=== PATIENT | female | born 1965 | race Caucasian/White ===

== ENCOUNTER 2022-11-30 09:10 | Outpatient (CLI) | payer BC, SELFPAY | END 2022-11-30 09:11 | disposition home or self-care (01) | PROVIDERS: PCP Family Medicine; Visit Provider Family Medicine | DX: Z00.00 Encounter for general adult medical examination without abnormal findings (principal); E03.9 Hypothyroidism, unspecified; I10 Essential (primary) hypertension; F41.8 Other specified anxiety disorders | CPT/HCPCS: 80053; 82607; 84443 ==

== ENCOUNTER 2023-03-23 16:52 | Outpatient (CLI) | payer BC, SELFPAY | END 2023-03-23 16:53 | disposition home or self-care (01) | LOC: NFLDREF 03-26 11:27 | PROVIDERS: PCP Family Medicine; Referring Provider Family Medicine; Visit Provider Family Medicine | DX: E03.9 Hypothyroidism, unspecified (principal); E87.6 Hypokalemia; I10 Essential (primary) hypertension | CPT/HCPCS: 80053; 84439; 84443 ==

== ENCOUNTER 2023-08-17 14:19 | Outpatient (CLI) | payer BC, SELFPAY | END 2023-08-17 14:20 | disposition home or self-care (01) | PROVIDERS: PCP Family Medicine; Visit Provider Family Medicine | DX: E03.9 Hypothyroidism, unspecified (principal); I10 Essential (primary) hypertension; Z98.84 Bariatric surgery status; Z13.21 Encounter for screening for nutritional disorder | CPT/HCPCS: 80053; 82607; 84443 ==

== ENCOUNTER 2024-08-18 11:45 | Outpatient (CLI) | payer BC, SELFPAY | END 2024-08-18 11:46 | disposition home or self-care (01) | PROVIDERS: PCP Family Medicine; Visit Provider Family Medicine | DX: E03.9 Hypothyroidism, unspecified (principal); I10 Essential (primary) hypertension; Z98.84 Bariatric surgery status; Z13.21 Encounter for screening for nutritional disorder | CPT/HCPCS: 80053; 82306; 82607; 84443 ==